=== PATIENT | female | born 1995 ===

== ENCOUNTER 2017-12-07 09:34 | Outpatient (CLI) | payer OTHER ==
[~2017-12-07] VITALS: Ht 165.1 cm; Wt 68.0 kg
== END 2017-12-07 09:55 | disposition home or self-care (01) ==
LOC: OFIC 805 09:34
DX: R22.1 Localized swelling, mass and lump, neck (principal); J11.1 Influenza due to unidentified influenza virus with other respiratory manifestations; R42 Dizziness and giddiness; R13.19 Other dysphagia

== ENCOUNTER 2017-12-11 08:44 | Outpatient (CLI) | payer OTHER | END 2017-12-11 08:52 | disposition home or self-care (01) | LOC: TOM 08:44 | DX: R22.1 Localized swelling, mass and lump, neck (principal) ==

== ENCOUNTER 2017-12-15 08:38 | Outpatient (CLI) | payer OTHER ==
[~2017-12-15] VITALS: Ht 152.4 cm; Wt 68.0 kg
== END 2017-12-15 09:00 | disposition home or self-care (01) ==
LOC: OFIC 805 08:38
DX: R22.1 Localized swelling, mass and lump, neck (principal)